=== PATIENT | female | born 1975 | race American Indian/Alaskan Native ===

== ENCOUNTER 2018-03-03 09:24 | Outpatient (CLI) | payer OTHER ==
--- NOTE | 2018-03-03 11:09 | XRay Report ---
CHEST 2 VIEWS INDICATION: Unspecified asthma. COMPARISON: None similar. FINDINGS: PA and lateral chest radiographs demonstrate normal cardiomediastinal silhouette. Clear lungs. Intact bones. CONCLUSION: No acute disease in the chest. Thank you for the opportunity to participate in this patient's care.
== END 2018-03-03 09:25 | disposition home or self-care (01) ==
LOC: XRAY 09:24
PROVIDERS: ATTEND Internal Medicine
DX: J45.909 Unspecified asthma, uncomplicated (principal); K21.9 Gastro-esophageal reflux disease without esophagitis; Z88.0 Allergy status to penicillin
CPT/HCPCS: 36600; 71046; 82785; 82803; 84436; 84443

== ENCOUNTER 2020-04-05 15:04 | Emergency (ER) | payer OTHER ==
--- NOTE | 2020-04-05 15:24 | Event Note ---
ED Screening Note Date of service: 04/05/20 Time: 15:20 ED Screening Note: Pt c/o intermittent fever and RLQ x 2 weeks +urgency, dysuira, and frequency hx of diverticulitis sent to ER for concern of appendicitis by her PCP This initial assessment/diagnostic orders/clinical plan/treatment(s) is/are subject to change based on patients health status, clinical progression and re- assessment by fellow clinical providers in the ED. Further treatment and workup at subsequent clinical providers discretion. Patient/guardian urged not to elope from the ED as their condition may be serious if not clinically assessed and managed. Initial orders include: labs UA CT
[2020-04-05 15:51] LABS: Bacteria,Urine 1+ /HPF (Negative); Bilirubin,Urine NEG (Negative); Blood,Urine SM (Negative); Color,Urine Amber (Yellow); Mucus,Urine 2+ /HPF
[2020-04-05 15:58] LABS: Basophils # (Auto) 0.1 K/mm3 (0.0-0.1); Basophils % (Auto) 1.2 % (0.0-1.8); Eosinophils # (Auto) 0.3 K/mm3 (0.0-0.4); Eosinophils % (Auto) 3.3 % (0.0-4.3); Hematocrit 39.3 % (30.3-42.9); Lymphocytes # (Auto) 2.2 K/mm3 (1.2-5.4); Lymphocytes % (Auto) 25.1 % (13.4-35.0); Mean Corpuscular HGB Conc 33 % (30-34); Mean Corpuscular Volume 85 fl (79-97); Monocytes % (Auto) 11.2 % (0.0-7.3); Red Blood Count 4.66 M/mm3 (3.65-5.03); Red Cell Distribution Width 13.4 % (13.2-15.2)
[2020-04-05 15:59] LABS: Platelet Count 459 K/mm3 (140-440)
[2020-04-05 16:08] LABS: Alanine Aminotransferase 28 units/L (7-56); Albumin 3.9 g/dL (3.9-5); BUN/Creatinine Ratio 7; Blood Urea Nitrogen 8 mg/dL (7-17); Calcium 9.6 mg/dL (8.4-10.2); Hemolysis Index 1
[2020-04-05] MEDS ORDERED: SODIUM CHLORIDE 0.9% 1000 ML 1,000 ML IV ONE (19:36)
[2020-04-05] MEDS ORDERED: cefTRIAXone/NS 1 GM/50 ML 1 GM/50 ML BAG IV ONE (19:36)
[2020-04-05] MEDS ORDERED: ONDANSETRON 4 MG/2 ML INJ IV ONE (19:38)
[2020-04-05] MEDS ORDERED: KETOROLAC 30 MG/1 ML INJ IV ONE (19:38)
--- NOTE | 2020-04-05 20:12 | Emergency Department Report ---
ED Abdominal Pain HPI - General Chief Complaint: Abdominal Pain Stated Complaint: FEVER/STOMACH PAIN Time Seen by Provider: 04/05/20 15:20 Source: patient Mode of arrival: Ambulatory Limitations: No Limitations - History of Present Illness Initial Comments: Patient is a 44-year-old female with history of GERD, hypertension, diverticulosis,Arthralgia, fibromyalgia. Patient states abdominal pain nausea vomiting flank pain and low-grade fever for the past 1/2 weeks. Patient treated for GERD by PCP x2 with no improvement in symptoms. Now with right flank pain radiating to right lower quadrant, dysuria, frequency, urgency. Symptoms are relieved NSAIDs as needed for pain, symptoms are exacerbated by voiding. Nausea and vomiting worsening for the past 3 days. MD Complaint: abdominal pain, flank pain Severity scale (0 -10): 3 - Related Data Home Medications Medication Instructions Recorded Confirmed Last Taken Calcium Citrate 800 mg PO QDAY 01/24/18 01/24/18 Unknown Cyanocobalamin (Vitamin B-12) 5,000 mcg SL DAILY 01/24/18 01/24/18 Unknown [Vitamin B-12] Fluticasone/Salmeterol (Nf) 2 puff PO BID 01/24/18 01/24/18 Unknown [Advair 250-50 Diskus (Nf)] Garlic [Odor Free Garlic] 200 mg PO QDAY 01/24/18 01/24/18 Unknown Levothyroxine [Synthroid] 88 mcg PO QAM 01/24/18 01/24/18 Unknown Meclizine [Antivert] 25 mg PO Q8H PRN 01/24/18 01/24/18 Unknown Metoprolol [Lopressor TAB] 25 mg PO QDAY 01/24/18 01/24/18 Unknown Montelukast [Singulair] 10 mg PO QPM 01/24/18 01/24/18 Unknown Multivit/Iron/FA/K/Herb No.244 1 each PO QDAY 01/24/18 01/24/18 Unknown [Alive Women's Energy Mv Tablet] [place]-3 Fatty Acids/Fish Oil [Fish 800 mg PO QDAY 01/24/18 01/24/18 Unknown Oil] ProAir HFA Inhaler 2 puff PO Q4H PRN 01/24/18 01/24/18 Unknown Riboflavin (Vitamin B2) [Vitamin 200 mg PO QDAY 01/24/18 01/24/18 Unknown B-2] dimenhyDRINATE [Dramamine] 50 mg PO QDAY 01/24/18 01/24/18 Unknown Previous Rx's Medication Instructions Recorded Last Taken Type Docusate Sodium [Colace] 100 mg PO BID PRN #30 capsule 01/25/18 Unknown Rx Hydrocortisone 2.5% [Proctosol-Hc] 28.35 gm SD Q8H PRN #1 tube 01/25/18 Unknown Rx polyethylene glycoL 3350 [Miralax 17 gm PO QDAY 14 Days packet 01/25/18 Unknown Rx 3350] Benzonatate [Tessalon Perle] 100 mg PO TID PRN #30 capsule 05/25/18 Unknown Rx Fluticasone [Flonase] 1 spray NS QDAY #1 bottle 05/25/18 Unknown Rx Oseltamivir [Tamiflu] 75 mg PO BID #10 cap 05/25/18 Unknown Rx Ketorolac [Toradol] 10 mg PO Q6H PRN #12 tablet 04/05/20 Unknown Rx levoFLOXacin [Levaquin TAB] 500 mg PO QDAY #7 tablet 04/05/20 Unknown Rx Allergies Allergy/AdvReac Type Severity Reaction Status Date / Time Penicillins Allergy Rash Verified 01/24/18 10:13 ED Review of Systems ROS: Stated complaint: FEVER/STOMACH PAIN Other details as noted in HPI Constitutional: denies: chills, fever Eyes: denies: eye pain, eye discharge, vision change ENT: denies: ear pain, throat pain Respiratory: denies: cough, shortness of breath, wheezing Cardiovascular: denies: chest pain, palpitations Endocrine: no symptoms reported Gastrointestinal: abdominal pain, nausea, vomiting. denies: diarrhea, constipation, melena Genitourinary: urgency, dysuria, frequency. denies: discharge Musculoskeletal: back pain (Right flank). denies: joint swelling, arthralgia Skin: denies: rash, lesions Neurological: denies: headache, weakness, paresthesias Psychiatric: denies: anxiety, depression Hematological/Lymphatic: denies: easy bleeding, easy bruising ED Past Medical Hx - Past Medical History Hx Hypertension: Yes (home med: Metoprolol; none received in hospital) Hx CVA: No Hx Heart Attack/AMI: No Hx Congestive Heart Failure: No Hx Diabetes: No Hx Deep Vein Thrombosis: No Hx Pulmonary Embolism: No Hx GERD: Yes Hx Liver Disease: No Hx Renal Disease: No Hx Sickle Cell Disease: No Hx Arthritis: Yes Hx Headaches / Migraines: No Hx Seizures: No Hx Kidney Stones: No Hx Psychiatric Treatment: No Hx Asthma: Yes (nebulizer treatment before coming to GI lab) Hx COPD: No Hx Tuberculosis: No Hx Dementia: No Hx HIV: No Additional medical history: diverticulosis, GIB, vertigo, fibromyalgia, ISABEL, lupus SLE - Surgical History Hx Coronary Stent: No Hx Open Heart Surgery: No Hx Pacemaker: No Hx Internal Defibrillator: No Hx Cholecystectomy: No Hx Appendectomy: No Hx Breast Surgery: No Additional Surgical History: sinus surgery, left ovary and both tubes removed. - Social History Smoking Status: Never Smoker Substance Use Type: None - Medications Home Medications: Home Medications Medication Instructions Recorded Confirmed Last Taken Type Calcium Citrate 800 mg PO QDAY 01/24/18 01/24/18 Unknown History Cyanocobalamin (Vitamin B-12) 5,000 mcg SL DAILY 01/24/18 01/24/18 Unknown History [Vitamin B-12] Fluticasone/Salmeterol (Nf) 2 puff PO BID 01/24/18 01/24/18 Unknown History [Advair 250-50 Diskus (Nf)] Garlic [Odor Free Garlic] 200 mg PO QDAY 01/24/18 01/24/18 Unknown History Levothyroxine [Synthroid] 88 mcg PO QAM 01/24/18 01/24/18 Unknown History Meclizine [Antivert] 25 mg PO Q8H PRN 01/24/18 01/24/18 Unknown History Metoprolol [Lopressor TAB] 25 mg PO QDAY 01/24/18 01/24/18 Unknown History Montelukast [Singulair] 10 mg PO QPM 01/24/18 01/24/18 Unknown History Multivit/Iron/FA/K/Herb No.244 1 each PO QDAY 01/24/18 01/24/18 Unknown History [Alive Women's Energy Mv Tablet] [place]-3 Fatty Acids/Fish Oil [Fish 800 mg PO QDAY 01/24/18 01/24/18 Unknown History Oil] ProAir HFA Inhaler 2 puff PO Q4H PRN 01/24/18 01/24/18 Unknown History Riboflavin (Vitamin B2) [Vitamin 200 mg PO QDAY 01/24/18 01/24/18 Unknown History B-2] dimenhyDRINATE [Dramamine] 50 mg PO QDAY 01/24/18 01/24/18 Unknown History Docusate Sodium [Colace] 100 mg PO BID PRN #30 capsule 01/25/18 Unknown Rx Hydrocortisone 2.5% [Proctosol-Hc] 28.35 gm SD Q8H PRN #1 tube 01/25/18 Unknown Rx polyethylene glycoL 3350 [Miralax 17 gm PO QDAY 14 Days packet 01/25/18 Unknown Rx 3350] Benzonatate [Tessalon Perle] 100 mg PO TID PRN #30 capsule 05/25/18 Unknown Rx Fluticasone [Flonase] 1 spray NS QDAY #1 bottle 05/25/18 Unknown Rx Oseltamivir [Tamiflu] 75 mg PO BID #10 cap 05/25/18 Unknown Rx Ketorolac [Toradol] 10 mg PO Q6H PRN #12 tablet 04/05/20 Unknown Rx levoFLOXacin [Levaquin TAB] 500 mg PO QDAY #7 tablet 04/05/20 Unknown Rx ED Physical Exam - General Limitations: No Limitations General appearance: alert, in no apparent distress - Head Head exam: Present: atraumatic, normocephalic - Eye Eye exam: Present: normal appearance - ENT ENT exam: Present: mucous membranes moist - Neck Neck exam: Present: normal inspection - Respiratory Respiratory exam: Present: normal lung sounds bilaterally. Absent: respiratory distress, wheezes, stridor, chest wall tenderness - Cardiovascular Cardiovascular Exam: Present: regular rate, normal rhythm, normal heart sounds. Absent: systolic murmur, diastolic murmur, rubs, gallop - GI/Abdominal GI/Abdominal exam: Present: soft, tenderness (right flank, RL Quad ), normal b owel sounds. Absent: distended, guarding, rebound, rigid, bruit, hernia - Rectal Rectal exam: Present: deferred - Extremities Exam Extremities exam: Present: normal inspection, full ROM. Absent: tenderness - Back Exam Back exam: Present: normal inspection, full ROM, tenderness, CVA tenderness (R). Absent: CVA tenderness (L), vertebral tenderness - Neurological Exam Neurological exam: Present: alert, oriented X3, CN II-XII intact, normal gait, reflexes normal - Psychiatric Psychiatric exam: Present: normal affect, normal mood - Skin Skin exam: Present: warm, dry, intact, normal color. Absent: rash ED Course Vital Signs 04/05/20 04/05/20 15:21 20:39 Temperature 99.0 F Pulse Rate 93 H 83 Respiratory 18 17 Rate Blood Pressure 139/81 Blood Pressure 130/75 [Left] O2 Sat by Pulse 97 100 Oximetry ED Medical Decision Making - Lab Data Result diagrams: 04/05/20 15:24 04/05/20 15:24 Labs 04/05/20 04/05/20 04/05/20 15:24 15:24 15:25 WBC 8.7 RBC 4.66 Hgb 13.0 Hct 39.3 MCV 85 MCH 28 MCHC 33 RDW 13.4 Plt Count 459 H Lymph % (Auto) 25.1 [place] % (Auto) 11.2 H Eos % (Auto) 3.3 Baso % (Auto) 1.2 Lymph # (Auto) 2.2 [place] # (Auto) 1.0 H Eos # (Auto) 0.3 Baso # (Auto) 0.1 Seg Neutrophils % 59.2 Seg Neutrophils # 5.1 Sodium 137 Potassium 4.2 Chloride 100.9 Carbon Dioxide 22 Anion Gap 18 BUN 8 Creatinine 1.1 Estimated GFR > 60 BUN/Creatinine Ratio 7 Glucose 84 Calcium 9.6 Total Bilirubin 0.20 AST 24 ALT 28 Alkaline Phosphatase 96 Total Protein 8.5 H Albumin 3.9 Albumin/Globulin Ratio 0.8 Lipase 22 Urine Color Urine Turbidity Urine pH Ur Specific [place] Urine Protein Urine Glucose (UA) Urine Ketones Urine Blood Urine Nitrite Urine Bilirubin Urine Urobilinogen Ur Leukocyte Esterase Urine WBC (Auto) Urine RBC (Auto) U Epithel Cells (Auto) Urine Bacteria (Auto) Urine Mucus 04/05/20 15:42 WBC RBC Hgb Hct MCV MCH MCHC RDW Plt Count Lymph % (Auto) [place] % (Auto) Eos % (Auto) Baso % (Auto) Lymph # (Auto) [place] # (Auto) Eos # (Auto) Baso # (Auto) Seg Neutrophils % Seg Neutrophils # Sodium Potassium Chloride Carbon Dioxide Anion Gap BUN Creatinine Estimated GFR BUN/Creatinine Ratio Glucose Calcium Total Bilirubin AST ALT Alkaline Phosphatase Total Protein Albumin Albumin/Globulin Ratio Lipase Urine Color [place] Urine Turbidity Slightly-cloudy Urine pH 5.0 Ur Specific [place] 1.026 Urine Protein 30 mg/dl Urine Glucose (UA) Neg Urine Ketones Neg Urine Blood Sm Urine Nitrite Neg Urine Bilirubin Neg Urine Urobilinogen 2.0 Ur Leukocyte Esterase Mod Urine WBC (Auto) 8.0 H Urine RBC (Auto) 35.0 U Epithel Cells (Auto) 26.0 H Urine Bacteria (Auto) 1+ Urine Mucus 2+ - Radiology Data Radiology results: report reviewed, image reviewed Findings Reporting MD: Sixto Cm Dictation Time: April 05, 2020 19:18 Retort Forker: Not available Cushion Installer Date: CT ABDOMEN AND PELVIS WITH CONTRAST INDICATION / CLINICAL INFORMATION: RLQ pain and intermittent fevers. TECHNIQUE: Axial CT images were obtained through the abdomen and pelvis after 100 mL Omnipaque [address] scans at this location are performed using CT dose reduction for ALARA by means of automated exposure control. COMPARISON: CT dated 01/25/18 FINDINGS: LOWER CHEST: No significant abnormality. LIVER: No significant abnormality. GALLBLADDER: No significant abnormality. BILE DUCTS: No significant abnormality. PANCREAS: No significant abnormality. SPLEEN: No significant abnormality. ADRENALS: No significant abnormality. RIGHT KIDNEY / URETER: No significant abnormality. LEFT KIDNEY / URETER: No significant abnormality. STOMACH / SMALL BOWEL: No significant abnormality. COLON: No significant abnormality. APPENDIX: No significant abnormality. PERITONEUM: No free fluid. No free air. No fluid collection. LYMPH NODES: Multiple enlarged, inflamed right iliac chain lymph nodes which are new since the previous study. Right external iliac chain node measures 1.9 cm in short axis on axial series 2 image 163. Right common iliac node measures 1.9 cm short axis on axial image 134. Mildly enlarged but smaller lymph nodes are seen along the left iliac chain. Interval development of bilateral enlarged groin lymph nodes. Right groin node measures 1.9 cm short axis on axial image 177. Left groin node measures 1.6 cm in short axis on the same image. AORTA / ARTERIES: No significant abnormality. IVC / VEINS: No significant abnormality. URINARY BLADDER: No significant abnormality. REPRODUCTIVE ORGANS: No significant abnormality. ADDITIONAL FINDINGS: Numerous calcified pelvic phleboliths are unchanged. SKELETAL SYSTEM: No significant abnormality. IMPRESSION: 1. Interval development of bilateral groin and iliac chain adenopathy with possible right iliac chain lymphadenitis of uncertain etiology. 2. Otherwise, no acute process in the abdomen or pelvis. [facility] [address] , [address] [place] [address] P [phone] F [phone] - Medical Decision Making Noted bilateral groin lymph, fever is resolved, no pyelonephritis, pt tx with rocephin ivpb, pt advises symptoms are resolved, plan: dc to home with rx for levaquin, toradol , follow up with pcp in 2-3 days ,pt will return emergency if symptoms worsen. Critical care attestation.: If time is entered above; I have spent that time in minutes in the direct care of this critically ill patient, excluding procedure time. ED Disposition Clinical Impression: UTI (urinary tract infection) Qualifiers: Urinary tract infection type: acute cystitis Hematuria presence: without hematuria Qualified Code(s): N30.00 - Acute cystitis without hematuria Disposition: DC-01 TO HOME OR SELFCARE Is pt being admited?: No Does the pt Need Aspirin: No Condition: Stable Instructions: Urinary Tract Infection in Women (ED) Prescriptions: levoFLOXacin [Levaquin TAB] 500 mg PO QDAY #7 tablet Ketorolac [Toradol] 10 mg PO Q6H PRN #12 tablet PRN Reason: Pain Referrals: RENATE QUEVEDO MD [Primary Care Provider] - 3-5 Days Forms: Work/School Release Form(ED) Time of Disposition: 20:52
--- NOTE | 2020-04-05 20:19 | Cat Scan Report ---
CT ABDOMEN AND PELVIS WITH CONTRAST INDICATION / CLINICAL INFORMATION: RLQ pain and intermittent fevers. TECHNIQUE: Axial CT images were obtained through the abdomen and pelvis after 100 mL Omnipaque [address] scans at this location are performed using CT dose reduction for ALARA by means of automated exposure control. COMPARISON: CT dated 01/25/18 FINDINGS: LOWER CHEST: No significant abnormality. LIVER: No significant abnormality. GALLBLADDER: No significant abnormality. BILE DUCTS: No significant abnormality. PANCREAS: No significant abnormality. SPLEEN: No significant abnormality. ADRENALS: No significant abnormality. RIGHT KIDNEY / URETER: No significant abnormality. LEFT KIDNEY / URETER: No significant abnormality. STOMACH / SMALL BOWEL: No significant abnormality. COLON: No significant abnormality. APPENDIX: No significant abnormality. PERITONEUM: No free fluid. No free air. No fluid collection. LYMPH NODES: Multiple enlarged, inflamed right iliac chain lymph nodes which are new since the previo us study. Right external iliac chain node measures 1.9 cm in short axis on axial series 2 image 163. Right common iliac node measures 1.9 cm short axis on axial image 134. Mildly enlarged but smaller ly mph nodes are seen along the left iliac chain. Interval development of bilateral enlarged groin lymph nodes. Right groin node measures 1.9 cm short axis on axial image 177. Left groin node measures 1.6 cm in short axis on the same image. AORTA / ARTERIES: No significant abnormality. IVC / VEINS: No significant abnormality. URINARY BLADDER: No significant abnormality. REPRODUCTIVE ORGANS: No significant abnormality. ADDITIONAL FINDINGS: Numerous calcified pelvic phleboliths are unchanged. SKELETAL SYSTEM: No significant abnormality. IMPRESSION: 1. Interval development of bilateral groin and iliac chain adenopathy with possible right iliac chain lymphadenitis of uncertain etiology. 2. Otherwise, no acute process in the abdomen or pelvis. Signer Name: Charo Cm MD Signed: 04/05/2020 8:15 PM Workstation Name: [id number]
[2020-04-05 20:40] VITALS: BP 130/75
== END 2020-04-05 21:09 | disposition home or self-care (01) ==
LOC: ED 15:04
DX: N39.0 Urinary tract infection, site not specified (principal); I10 Essential (primary) hypertension; K21.9 Gastro-esophageal reflux disease without esophagitis; M19.90 Unspecified osteoarthritis, unspecified site; Z79.899 Other long term (current) drug therapy; Z98.890 Other specified postprocedural states
CPT/HCPCS: 36415; 74177; 80053; 81001; 83690; 85025; 96365; 96375; 99284; J0696; J1885; J2405; J7030; Q9967

== ENCOUNTER 2021-04-23 11:00 | Outpatient (CLI) | payer OTHER | END 2021-04-23 11:01 | disposition home or self-care (01) | LOC: SLR 11:00 | PROVIDERS: ATTEND Internal Medicine | DX: G47.30 Sleep apnea, unspecified (principal) | CPT/HCPCS: 95810 ==

== ENCOUNTER 2021-09-28 13:49 | Emergency (ER) | payer OTHER ==
[2021-09-28 16:09] LABS: Basophils # (Auto) 0.1 K/mm3 (0.0-0.1); Basophils % (Auto) 0.8 % (0.0-1.8); Eosinophils # (Auto) 0.2 K/mm3 (0.0-0.4); Eosinophils % (Auto) 1.5 % (0.0-4.3); Hematocrit 44.1 % (30.3-42.9); Hemoglobin 14.2 gm/dl (10.1-14.3); Lymphocytes # (Auto) 2.3 K/mm3 (1.2-5.4); Lymphocytes % (Auto) 21.7 % (13.4-35.0); Mean Corpuscular HGB Conc 32 % (30-34); Mean Corpuscular Volume 86 fl (79-97); Monocytes # (Auto) 0.8 K/mm3 (0.0-0.8); Monocytes % (Auto) 7.2 % (0.0-7.3); Platelet Count 450 K/mm3 (140-440); Red Blood Count 5.13 M/mm3 (3.65-5.03); Red Cell Distribution Width 14.2 % (13.2-15.2)
[2021-09-28 16:14] LABS: Alanine Aminotransferase 17 units/L (7-56); Albumin 4.5 g/dL (3.9-5); BUN/Creatinine Ratio 12; Blood Urea Nitrogen 12 mg/dL (7-17); Hemolysis Index 7
[2021-09-28] MEDS ORDERED: diazePAM 10 MG/2 ML SYRINGE IV ONE (19:50)
--- NOTE | 2021-09-28 19:54 | Emergency Department Report ---
ED Dizziness HPI - General Chief Complaint: Dizziness Stated Complaint: DIZZINESS, SYNCOPE Time Seen by Provider: 09/28/21 19:45 Source: patient Mode of arrival: Ambulatory Limitations: Other - History of Present Illness Initial Comments: Patient is 45-year-old female with history of hypertension and chronic vertigo. Patient presented to the ER complaining of dizziness for the last 2 days. Patient stated that she took meclizine with no improvement. Patient describes her dizziness as room spinning. She denied any nausea or vomiting. She also denied any visual changes. Patient also denied any headache, weakness numbness or tingling sensation. MD Complaint: dizziness -: days(s) (2) Timing: sudden onset Description: lightheadedness, off-balance History of Same: Yes Severity: moderate Improves With: remaining still Worsens With: movement Associated Symptoms: denies other symptoms. denies: ataxia, chest pain, confus ion, cough, fever/chills, loss of appetite, shortness of breath, syncope - Related Data Home Medications Medication Instructions Recorded Confirmed Last Taken Calcium Citrate 800 mg PO QDAY 01/24/18 01/24/18 Unknown Cyanocobalamin (Vitamin B-12) 5,000 mcg SL DAILY 01/24/18 01/24/18 Unknown [Vitamin B-12] Fluticasone/Salmeterol (Nf) 2 puff PO BID 01/24/18 01/24/18 Unknown [Advair 250-50 Diskus (Nf)] Garlic [Odor Free Garlic] 200 mg PO QDAY 01/24/18 01/24/18 Unknown Levothyroxine [Synthroid] 88 mcg PO QAM 01/24/18 01/24/18 Unknown Meclizine [Antivert] 25 mg PO Q8H PRN 01/24/18 01/24/18 Unknown Metoprolol [Lopressor TAB] 25 mg PO QDAY 01/24/18 01/24/18 Unknown Montelukast [Singulair] 10 mg PO QPM 01/24/18 01/24/18 Unknown Multivit/Iron/FA/K/Herb No.244 1 each PO QDAY 01/24/18 01/24/18 Unknown [Alive Women's Energy Mv Tablet] Keystone-3 Fatty Acids/Fish Oil [Fish 800 mg PO QDAY 01/24/18 01/24/18 Unknown Oil] ProAir HFA Inhaler 2 puff PO Q4H PRN 01/24/18 01/24/18 Unknown Riboflavin (Vitamin B2) [Vitamin 200 mg PO QDAY 01/24/18 01/24/18 Unknown B-2] dimenhyDRINATE [Dramamine] 50 mg PO QDAY 01/24/18 01/24/18 Unknown Previous Rx's Medication Instructions Recorded Last Taken Type Docusate Sodium [Colace] 100 mg PO BID PRN #30 capsule 01/25/18 Unknown Rx Hydrocortisone 2.5% [Proctosol-Hc] 28.35 gm [place] Q8H PRN #1 tube 01/25/18 Unknown Rx polyethylene glycoL 3350 [Miralax 17 gm PO QDAY 14 Days packet 01/25/18 Unknown Rx 3350] Benzonatate [Tessalon Perle] 100 mg PO TID PRN #30 capsule 05/25/18 Unknown Rx Fluticasone [Flonase] 1 spray NS QDAY #1 bottle 05/25/18 Unknown Rx Oseltamivir [Tamiflu] 75 mg PO BID #10 cap 05/25/18 Unknown Rx Ketorolac [Toradol] 10 mg PO Q6H PRN #12 tablet 04/05/20 Unknown Rx levoFLOXacin [Levaquin TAB] 500 mg PO QDAY #7 tablet 04/05/20 Unknown Rx Allergies Allergy/AdvReac Type Severity Reaction Status Date / Time Penicillins Allergy Rash Verified 01/24/18 10:13 ED Review of Systems ROS: Stated complaint: DIZZINESS, SYNCOPE Other details as noted in HPI Comment: All other systems reviewed and negative Constitutional: denies: chills, fever Respiratory: denies: cough, shortness of breath, SOB with exertion, SOB at rest Cardiovascular: denies: chest pain, palpitations Gastrointestinal: denies: abdominal pain, nausea, vomiting, diarrhea, constipation, hematemesis, melena, hematochezia Musculoskeletal: denies: back pain Neurological: vertigo. denies: headache, weakness, numbness, paresthesias, confusion ED Past Medical Hx - Past Medical History Previous Medical History?: Yes Hx Hypertension: Yes (home med: Metoprolol; none received in hospital) Hx CVA: No Hx Heart Attack/AMI: No Hx Congestive Heart Failure: No Hx Diabetes: No Hx Deep Vein Thrombosis: No Hx Pulmonary Embolism: No Hx GERD: Yes Hx Liver Disease: No Hx Renal Disease: No Hx Sickle Cell Disease: No Hx Arthritis: Yes Hx Headaches / Migraines: No Hx Seizures: No Hx Kidney Stones: No Hx Psychiatric Treatment: No Hx Asthma: Yes (nebulizer treatment before coming to GI lab) Hx COPD: No Hx Tuberculosis: No Hx Dementia: No Hx HIV: No Additional medical history: diverticulosis, GIB, vertigo, fibromyalgia, ISABEL, lupus SLE - Surgical History Past Surgical History?: Yes Hx Coronary Stent: No Hx Open Heart Surgery: No Hx Pacemaker: No Hx Internal Defibrillator: No Hx Cholecystectomy: No Hx Appendectomy: No Hx Breast Surgery: No Additional Surgical History: sinus surgery, left ovary and both tubes removed. - Social History Smoking Status: Never Smoker Substance Use Type: None - Medications Home Medications: Home Medications Medication Instructions Recorded Confirmed Last Taken Type Calcium Citrate 800 mg PO QDAY 01/24/18 01/24/18 Unknown History Cyanocobalamin (Vitamin B-12) 5,000 mcg SL DAILY 01/24/18 01/24/18 Unknown History [Vitamin B-12] Fluticasone/Salmeterol (Nf) 2 puff PO BID 01/24/18 01/24/18 Unknown History [Advair 250-50 Diskus (Nf)] Garlic [Odor Free Garlic] 200 mg PO QDAY 01/24/18 01/24/18 Unknown History Levothyroxine [Synthroid] 88 mcg PO QAM 01/24/18 01/24/18 Unknown History Meclizine [Antivert] 25 mg PO Q8H PRN 01/24/18 01/24/18 Unknown History Metoprolol [Lopressor TAB] 25 mg PO QDAY 01/24/18 01/24/18 Unknown History Montelukast [Singulair] 10 mg PO QPM 01/24/18 01/24/18 Unknown History Multivit/Iron/FA/K/Herb No.244 1 each PO QDAY 01/24/18 01/24/18 Unknown History [Alive Women's Energy Mv Tablet] Keystone-3 Fatty Acids/Fish Oil [Fish 800 mg PO QDAY 01/24/18 01/24/18 Unknown History Oil] ProAir HFA Inhaler 2 puff PO Q4H PRN 01/24/18 01/24/18 Unknown History Riboflavin (Vitamin B2) [Vitamin 200 mg PO QDAY 01/24/18 01/24/18 Unknown History B-2] dimenhyDRINATE [Dramamine] 50 mg PO QDAY 01/24/18 01/24/18 Unknown History Docusate Sodium [Colace] 100 mg PO BID PRN #30 capsule 01/25/18 Unknown Rx Hydrocortisone 2.5% [Proctosol-Hc] 28.35 gm AZ Q8H PRN #1 tube 01/25/18 Unknown Rx polyethylene glycoL 3350 [Miralax 17 gm PO QDAY 14 Days packet 01/25/18 Unknown Rx 3350] Benzonatate [Tessalon Perle] 100 mg PO TID PRN #30 capsule 05/25/18 Unknown Rx Fluticasone [Flonase] 1 spray NS QDAY #1 bottle 05/25/18 Unknown Rx Oseltamivir [Tamiflu] 75 mg PO BID #10 cap 05/25/18 Unknown Rx Ketorolac [Toradol] 10 mg PO Q6H PRN #12 tablet 04/05/20 Unknown Rx levoFLOXacin [Levaquin TAB] 500 mg PO QDAY #7 tablet 04/05/20 Unknown Rx ED Physical Exam - General Limitations: Other General appearance: alert, in no apparent distress - Head Head exam: Present: atraumatic, normocephalic, normal inspection - Eye Eye exam: Present: normal appearance - ENT ENT exam: Present: normal exam, normal orophraynx, mucous membranes moist - Neck Neck exam: Present: normal inspection, full ROM. Absent: tenderness, meningismus, lymphadenopathy, thyromegaly - Respiratory Respiratory exam: Present: normal lung sounds bilaterally - Cardiovascular Cardiovascular Exam: Present: regular rate, normal rhythm, normal heart sounds - GI/Abdominal GI/Abdominal exam: Present: soft, normal bowel sounds. Absent: distended, tenderness, guarding, rebound, rigid, organomegaly, mass, bruit, pulsatile mass, hernia - Extremities Exam Extremities exam: Present: normal inspection, full ROM, normal capillary refill. Absent: tenderness - Back Exam Back exam: Present: normal inspection, full ROM. Absent: CVA tenderness (R), CVA tenderness (L) - Neurological Exam Neurological exam: Present: alert, oriented X3, CN II-XII intact, normal gait, reflexes normal. Absent: motor sensory deficit - Psychiatric Psychiatric exam: Present: normal mood - Skin Skin exam: Present: warm, intact, normal color ED Course Vital Signs 09/28/21 09/28/21 09/28/21 14:12 19:09 19:49 Temperature 99.1 F 98.5 F Pulse Rate 82 82 Respiratory 20 20 11 L Rate Blood Pressure 144/84 137/91 Blood Pressure [Right] O2 Sat by Pulse 98 97 Oximetry 09/28/21 09/28/21 09/28/21 20:01 20:15 20:31 Temperature Pulse Rate 83 85 82 Respiratory 11 L 22 22 Rate Blood Pressure Blood Pressure [Right] O2 Sat by Pulse 100 98 98 Oximetry 09/28/21 09/28/21 09/28/21 20:45 20:52 21:01 Temperature Pulse Rate 83 72 82 Respiratory 11 L 18 17 Rate Blood Pressure 148/96 Blood Pressure 148/96 [Right] O2 Sat by Pulse 100 98 98 Oximetry 09/28/21 09/28/21 09/28/21 21:15 21:31 21:45 Temperature Pulse Rate 82 74 74 Respiratory 22 12 15 Rate Blood Pressure 148/96 148/96 148/96 Blood Pressure [Right] O2 Sat by Pulse 99 100 100 Oximetry 09/28/21 09/28/21 09/28/21 21:51 22:01 22:15 Temperature Pulse Rate 79 78 Respiratory 15 14 Rate Blood Pressure 148/96 148/96 Blood Pressure [Right] O2 Sat by Pulse 98 99 99 Oximetry 09/28/21 09/28/21 09/28/21 22:31 22:45 23:01 Temperature Pulse Rate 83 71 74 Respiratory 18 14 15 Rate Blood Pressure 148/96 148/96 114/58 Blood Pressure [Right] O2 Sat by Pulse 100 99 100 Oximetry 09/28/21 09/28/21 09/28/21 23:15 23:31 23:45 Temperature Pulse Rate 73 68 85 Respiratory 18 18 17 Rate Blood Pressure 114/58 102/52 102/52 Blood Pressure [Right] O2 Sat by Pulse 100 100 99 Oximetry ED Medical Decision Making - Lab Data Result diagrams: 09/28/21 15:30 09/28/21 15:30 - EKG Data -: EKG Interpreted by Co EKG shows normal: sinus rhythm Rate: normal - Radiology Data Radiology results: report reviewed - Medical Decision Making Patient is 45-year-old female with history of hypertension and chronic vertigo. Patient presented to the ER complaining of dizziness for the last 2 days. Patient stated that she took meclizine with no improvement. Patient describes her dizziness as room spinning. She denied any nausea or vomiting. She also denied any visual changes. Patient also denied any headache, weakness numbness or tingling sensation. Patient received diazepam for dizziness. CT brain is negative for acute finding. Labs reviewed and showed UTI. Patient received Levaquin 500 mg IV. Patient given prescription for Levaquin and advised to follow-up with her primary doctor in the next 2 to 3 days and to return to the ER if she develop any symptoms. Critical care attestation.: If time is entered above; I have spent that time in minutes in the direct care of this critically ill patient, excluding procedure time. ED Disposition Clinical Impression: Dizziness, UTI (urinary tract infection) Disposition: 01 HOME / SELF CARE / HOMELESS Is pt being admited?: No Condition: Stable Instructions: Urinary Tract Infection, Adult, Dizziness, [id number] Referrals: PRIMARY CARE, [Primary Care Provider] - 3-5 Days
--- NOTE | 2021-09-28 20:36 | Cat Scan Report ---
CT head/brain wo con INDICATION: DIZZINESS. TECHNIQUE: Routine CT head without contrast. All CT scans at this location are performed using CT dos e reduction for ALARA by means of automated exposure control. COMPARISON: None. FINDINGS: BRAIN / INTRACRANIAL CONTENTS: No acute hemorrhage, mass effect, midline shift, or hydrocephalus. No appreciable acute large territorial or lacunar infarct. No chronic infarct or focal atrophy. Normal b rain volume and ventricular/sulcal size for age. ORBITS: No significant abnormality of visualized orbits. SINUSES / MASTOIDS: No significant abnormality of visualized sinuses and mastoid air cells. ADDITIONAL FINDINGS: None. IMPRESSION: 1. No acute intracranial abnormality. Signer Name: Andrea Johnson MD Signed: 09/28/2021 8:32 PM Workstation Name: [id number]
[2021-09-28 20:38] LABS: Bacteria,Urine 3+ /HPF (Negative); Bilirubin,Urine NEG (Negative); Blood,Urine MOD (Negative); Color,Urine Amber (Yellow); Hyaline Casts,Urine 2 /LPF; Mucus,Urine 2+ /HPF; Protein,Urine <15 mg/dL mg/dL (Negative)
[2021-09-28] MEDS ORDERED: SODIUM CHLORIDE 0.9% 1000 ML 1,000 ML IV ONE (20:49)
[2021-09-29 01:14] VITALS: BP 104/64
--- NOTE | 2021-09-29 10:45 | Electrocardiograph Report ---
[facility] Test Date: 2021-09-28 Test Time: 15:08:55 Pat Name: MERISSA SANTIAGO Department: Room: Gender: F Stoner Hand: AYANNA : 1975 Requested By: JAN MAI Order Number: [id number] Reading MD: Magalie Beltran Measurements Intervals Reading Rate: 77 P: 24 WV: 151 QRS: 32 QRSD: 90 T: 11 QT: 374 QTc: 422 Interpretive Statements Sinus rhythm No previous ECG available for comparison Electronically Signed On 09-29-2021 10:45:06 EDT by Magalie Beltran
== END 2021-09-29 01:20 | disposition home or self-care (01) ==
LOC: ED 13:49
DX: R42 Dizziness and giddiness (principal); N39.0 Urinary tract infection, site not specified; Z88.0 Allergy status to penicillin; I10 Essential (primary) hypertension
CPT/HCPCS: 36415; 70450; 80053; 81001; 84484; 85025; 87086; 93005; 96365; 96375; 99284; J1956; J3360; J7030